=== PATIENT | female | born 1995 | race Hispanic/Latino ===

== ENCOUNTER 2018-04-02 16:18 | Inpatient (IN) | payer SELFPAY ==
[2018-04-02 16:55] VITALS: BMI 38.7
[2018-04-02 17:10] LABS: Amnisure Test RUPTURE DETECTED (No Rupture)
[2018-04-02 17:11] LABS: Amnisure Internal Control QC ACCEPTABLE (ACCEPTABLE)
--- NOTE | 2018-04-02 17:15 | PDOC.LDHP ---
Labor and Delivery H&P Chief complaint: loss of fluid (at 1430 today, at 38 weeks) HPI: Patient of Dr luna Here for LOF at 1430 HPI: 23 yo G1 at 38 weeks with LOF, no VB, good FM. Denies issues. Patient has full Handwritten H&P in chart Review of Systems: Complete ROS performed and as per HPI Current gestational age (weeks): 38 Dating criteria: last menstrual period Grav: 1 Para: 0 Current complications: none Abnormal US findings: No Current medications: pre- vitamins Previous surgical history: none Allergies/Adverse Reactions: Allergies Allergy/AdvReac Type Severity Reaction Status Date / Time No Known Allergies Allergy Verified 04/02/18 16:56 Social history: none - Physical Exam Vital signs reviewed and normal: yes (133/79 afebrile P100) General: NAD Heart: RRR Lungs: CTAB Abdomen: gravid (6#on leopolds) FHT: category 1 [place] contractions every: irregular - Vaginal Exam cm dilated: 3 (Sterile spec performed by me: clear fluid per os and in posterior vag fornix) Effacement: 50% Station: -1 - Assessment L&D Assessment: term rupture in membranes (Prelabor Rupture of membranes; GBS negative. SSE with evidence of ROM) - Plan Plan: admit to L&D, labor augmentation if indicated, informed consent obtained, anesthesia consult for pain management, other (If no cervical change nor contractioin increase, we will begin pitocin augmentation in 2 hours)
[2018-04-02] MEDS ORDERED: Acetaminophen/Codeine 30-300mg Tablet PO PRN ×2 (17:18)
[2018-04-02] MEDS ORDERED: NS / Oxytocin 40 units/1000ml 1,000 ML IV PRN (17:18)
[2018-04-02] MEDS ORDERED: Lidocaine 1% (PF) 30 ML VIAL SC PRN (17:18)
[2018-04-02] MEDS ORDERED: Promethazine HCl 25 MG/ML VIAL IM PRN (17:18)
[2018-04-02] MEDS ORDERED: Ibuprofen 800 MG TAB PO PRN (17:18)
[2018-04-02] MEDS ORDERED: Ondansetron PF 4 MG/2 ML Vial IVP PRN (17:18)
[2018-04-02] MEDS: Lactated Ringer's 1,000 ML IV SCH ×2 (17:40→18:16)
[2018-04-02 17:53] LABS: Hemoglobin 11.6 g/dL (12.0-16.0); Mean Corpuscular HGB CONC 34.4 g/dL (32.0-36.0); Mean Corpuscular Hemoglobin 29.8 pg (27.0-31.0); Mean Corpuscular Volume 86.6 fL (78.0-98.0); Mean Platelet Volume 9.9 fL (7.4-10.4); Platelet Count 215 thou/uL (130-400); RBC Distribution Width 13.3 % (11.5-14.5); Red Blood Cell (RBC) Count 3.88 mill/uL (4.20-5.40); White Blood Cell (WBC) Count 8.1 thou/uL (4.8-10.8)
[2018-04-02 18:30] LABS: HBSAg Index 0.24 S/CO (0-0.99); HIV (1/2) Antibody/Antigen Non-Reactive (NonReactive); HIV 1/2 INDEX 0.26 S/CO (<1.00); Hep B Surf Ag Non-Reactive S/CO (NonReactive); Syphilis Antibody Nonreactive (Nonreactive); Syphilis Antibody Index 0.03 S/CO (<1.00 Non-Reactive)
--- NOTE | 2018-04-02 19:41 | PDOC.LDPN ---
Labor & Delivery Progress Note - Objective Vital signs reviewed and normal: yes General: NAD, resting Uterine fundus: non tender SVE: by me; and IUPC placed after info given by me to patient and family Dilation: 3 Effacement: 50% Station: -1 FHT: category 1 [place] contractions every: irregular pattern AROM: clear fluid IUPC placed: yes - Assessment (1) PROM (premature rupture of membranes) Code(s): O42.90 - NENA ROM, 7TH0 BETW RUPT & ONST LABR, UNSP WEEKS OF GEST Current Visit: Yes Status: Acute Plan: continue plan of care, labor augmentation, pitocin for augmentation ( pitocin reviewed for active labor management. Plan and pitcoin discussed with them. GBS negative. Also offered JACOB- will consider.)
[2018-04-02] MEDS: NS w/ Oxytocin 10 units 500 ML IV SCH (19:50)
[2018-04-02] MEDS: Butorphanol Tartrate 1 MG/ML VIAL SLOW IVP PRN (23:25)
[2018-04-03] MEDS: Lactated Ringer's 1,000 ML IV SCH ×3 (01:55→15:59)
[2018-04-03] MEDS: Butorphanol Tartrate 1 MG/ML VIAL SLOW IVP PRN (01:55)
[2018-04-03] MEDS ORDERED: Fentanyl 4 mcg/Bup 0.1% Cadd 100 ML ONE ×2 (04:03→12:59)
[2018-04-03] MEDS: Fentanyl 4 mcg/Bupivacaine 0.1% Cassette 100 ML EPIDURAL SCH ×2 (04:25→13:03)
[2018-04-03] MEDS ORDERED: Hydrocerin (Eucerin) Cream 120 gm Jar TOP PRN (04:33)
[2018-04-03] MEDS ORDERED: Naloxone HCl 0.4 mg/ml Vial IVP PRN ×4 (04:33→20:23)
[2018-04-03] MEDS ORDERED: Lactated Ringer's 500 ML IV PRN (04:33)
[2018-04-03] MEDS ORDERED: ePHEDrine/0.9% NaCl/PF SYRINGE 50 mg/10 ml SLOW IVP PRN (04:33)
[2018-04-03] MEDS ORDERED: Communication Order-Pharmacy FS SCH ×2 (04:45→20:30)
[2018-04-03] MEDS ORDERED: Acetaminophen 325 MG TAB PO SCH (10:15)
[2018-04-03] MEDS ORDERED: Bupivacaine HCl 0.25%/Epi 0.0005/PF 10 ML VIAL FS ONE (11:11)
[2018-04-03] MEDS: NS w/ Oxytocin 10 units 500 ML IV SCH (11:17)
[2018-04-03] MEDS ORDERED: CEFAZOLIN 2 GM/50 ML BAG IVPB SCH (17:30)
[2018-04-03] MEDS ORDERED: Bicitra 30 ML UDCUP PO SCH (17:30)
[2018-04-03] MEDS ORDERED: Morphine PF 1 MG/ML SYR ONE (19:16)
[2018-04-03] MEDS ORDERED: Azithromycin 500 MG in Sodium Chloride 0.9% 250 ML 250 ML IVPB SCH (19:45)
[2018-04-03] MEDS ORDERED: Lidocaine 2% PF 5 ML VIAL ONE (20:00)
[2018-04-03] MEDS ORDERED: Ondansetron PF 4 MG/2 ML Vial ONE (20:00)
[2018-04-03] MEDS ORDERED: Ketorolac Tromethamine 30 MG/ML VIAL ONE (20:00)
[2018-04-03] MEDS ORDERED: Oxytocin 10 UNITS/ML VIAL ONE (20:00)
[2018-04-03] MEDS ORDERED: Promethazine HCl 25 MG/ML VIAL IM PRN ×2 (20:23→22:02)
[2018-04-03] MEDS ORDERED: Ondansetron PF 4 MG/2 ML Vial IVP PRN ×2 (20:23→22:02)
[2018-04-03] MEDS ORDERED: Naloxone HCl 0.4 mg/ml Vial IV PRN (20:23)
[2018-04-03] MEDS ORDERED: HYDROmorphone 2 MG/ML VIAL SLOW IVP PRN (20:23)
[2018-04-03] MEDS ORDERED: Eucerin (Mineral Oil/Petrolatum,White) 30 gm Jar TOP PRN (20:23)
[2018-04-03] MEDS ORDERED: diphenhydrAMINE 50 MG/ML VIAL IVP PRN (20:23)
[2018-04-03] MEDS ORDERED: L&D-Morphine 4 MG/ML VIAL SLOW IVP PRN (20:23)
[2018-04-03] MEDS ORDERED: Promethazine HCl 25 MG SUPP PR PRN (20:23)
[2018-04-03] MEDS ORDERED: Meperidine HCl/PF 25 MG/ML VIAL SLOW IVP PRN (20:23)
[2018-04-03] MEDS ORDERED: Ondansetron HCl/PF 4 MG/2 ML Vial IVP PRN (20:23)
[2018-04-03] MEDS ORDERED: NS / Oxytocin 40 units/1000ml 1,000 ML IV SCH (22:02)
[2018-04-03] MEDS ORDERED: Zolpidem Tartrate 5 MG TAB PO PRN (22:02)
[2018-04-03] MEDS ORDERED: Lanolin Ointment 7 GM TUBE TOP PRN (22:02)
[2018-04-03] MEDS ORDERED: Meperidine HCl/PF 25 MG/ML VIAL IM PRN (22:02)
[2018-04-03] MEDS ORDERED: Acetaminophen 325 MG TAB PO PRN (22:02)
[2018-04-03] MEDS ORDERED: diphenhydrAMINE 25 MG CAP PO PRN (22:02)
[2018-04-03] MEDS ORDERED: Clindamycin/D5W 900 MG in Premix Bag 1 BAG IVPB SCH (22:15)
--- NOTE | 2018-04-04 02:47 | OP ---
DATE OF PROCEDURE: 04/03/2018 PREOPERATIVE DIAGNOSES: Failure to progress, at term, chorioamnionitis, and greater than 24 hours of rupture of membranes. POSTOPERATIVE DIAGNOSES: Failure to progress, at term, chorioamnionitis, and greater than 24 hours of rupture of membranes. PROCEDURE PERFORMED: Primary low transverse section without extension. BLAST HOLE DRILLER: Magno Rousseau MD for [facility] obstetric hospitalist. ANESTHESIA: Epidural. DRAINS: Apblo to gravity. MEDICATIONS: 2 g Ancef and 500 of Zithromax. PREINCISION: DVT prophylaxis with SCDs. COUNTS: Correct at the end of the procedure. OPERATIVE FINDINGS: 1. Vigorous female , cephalic presentation, persistent ROT presentation to nursery, 7 pounds and 6 ounces, 9 and 9 of Apgars. 2. Foul-smelling amniotic fluid. 3. Normal-appearing uterus, tubes, and ovaries bilaterally. 4. Hemostasis, clear urine, counts correct at the end of the procedure. DISPOSITION: To recovery room in good condition. DESCRIPTION OF PROCEDURE: After obtaining appropriate operative consent, the patient was taken to OR back, where epidural was dosed to appropriate level. A Pfannenstiel skin incision was made and carried down to the fascia in the midline, incised sharply, and extended superiorly and laterally with curved Dotson scissors. Rectus dissected off sharply superiorly and inferiorly. Peritoneum was entered bluntly after dividing the rectus in the midline, and the Colin O retractor was placed inside. Vesicouterine peritoneal fold was identified, and low-transverse hysterotomy was made just above this. It was extended superiorly and laterally with finger fractionization. At hysterotomy, foul-smelling amniotic fluid was encountered. The infant's head was elevated through hysterotomy. The rest of the infant was delivered. Cord was clamped, cut, and handed off to the team in attendance. Usual cord blood sample was obtained. Placenta was removed manually, sent for pathologic analysis. Uterus was curetted out. Hysterotomy was noted to be without extension, closed using running locking #1 Monocryl suture. Gutters were irrigated out bilaterally, and reinspection of the hysterotomy revealed it to be dry. The Colin O retractor was removed, and the rectus was inspected and noted to be dry. Fascia was reapproximated using running continuous 0 PDS suture x2. Subcutaneous tissue was irrigated, rendered hemostatic with Bovie cautery, reapproximated using a 2-0 plain gut, and skin reapproximated with keegan. The patient was taken to recovery room in good condition. Job ID: [id number]
[2018-04-04] MEDS ORDERED: Ketorolac Tromethamine 30 MG/ML VIAL IVP PRN (04:30)
[2018-04-04] MEDS ORDERED: Ketorolac Tromethamine 30 MG/ML VIAL IVP SCH (04:30)
[2018-04-04] MEDS: Clindamycin/D5W 900 MG in Premix Bag 1 BAG IVPB SCH ×3 (05:18→21:27)
[2018-04-04 06:29] LABS: Hemoglobin 9.4 g/dL (12.0-16.0); Mean Corpuscular HGB CONC 34.1 g/dL (32.0-36.0); Mean Corpuscular Hemoglobin 29.8 pg (27.0-31.0); Mean Corpuscular Volume 87.5 fL (78.0-98.0); Mean Platelet Volume 9.3 fL (7.4-10.4); Platelet Count 185 thou/uL (130-400); RBC Distribution Width 13.3 % (11.5-14.5); Red Blood Cell (RBC) Count 3.15 mill/uL (4.20-5.40); White Blood Cell (WBC) Count 10.1 thou/uL (4.8-10.8)
[2018-04-04] MEDS: cefTRIAXone\\ROCEPHIN 1 GM in Sodium Chloride 0.9% 100 ML IVPB SCH (06:41)
--- NOTE | 2018-04-04 08:33 | PDOC.PP ---
Post Progress Note Post Day #: 1 PO intake tolerated: yes Flatus: no Ambulation: no Vital Signs (12 hours) Temp Pulse Resp BP Pulse Ox 04/04/18 04:55 98.4 F 114 H 18 122/55 L 95 04/04/18 01:00 98.0 F 103 H 18 108/56 L 96 04/04/18 00:15 98.2 F 99 20 105/59 L 97 04/03/18 23:10 99.0 F 100 20 108/59 L 97 Weight Weight 192 lb - Physical Examination General: NAD ( -pulse at rest 89 currently) Cardiovascular: no m/r/g, RRR Respiratory: clear to auscultation bilaterally, non-labored breathing Abdominal: + bowel sounds, lochia, no distention, appropriately TTP Extremities: negative homans (B) Skin: CS incision dry & intact, no rash Neurological: no gross focal deficits Psychiatric: normal affect Result Diagrams: 04/04/18 05:52 Additional Labs: Post Labs Blood Type O POSITIVE 04/02/18 17:38 Hep Bs Antigen Non-Reactive S/CO (NonReactive) 04/02/18 17:38 - Assessment/Plan doing well. benign exam. plan to continue rocephin and clindamycin for 24 hr and reassess. will check out coverage to ob hospitalist for remainder of admission
[2018-04-04] MEDS ORDERED: Adacel (T-DAP) 0.5 ML SYRINGE IM ONE (09:00)
[2018-04-04] MEDS ORDERED: Measles/Mumps/Rubella 10 MCG/0.5 ML VIAL SC ONE (09:00)
[2018-04-04] MEDS: Docusate Calcium (SURFAK) 240 MG CAP PO SCH ×2 (09:35→21:38)
[2018-04-04] MEDS: Prenatal Vitamin 1 TAB PO SCH (09:36)
[2018-04-04] MEDS: Lactated Ringer's 1,000 ML IV SCH ×2 (10:54→15:15)
[2018-04-04] MEDS: HYDROcodone/Acetaminophen 5/325 mg Tablet PO PRN ×2 (13:54→21:33)
[2018-04-04] MEDS ORDERED: Sodium Chloride 0.9% 10 ML ONE (21:14)
[2018-04-04] MEDS: Simethicone Chewable 80 MG TAB PO PRN (21:34)
[2018-04-04] MEDS: Ibuprofen 800 MG TAB PO SCH (22:20)
[2018-04-05] MEDS: Lactated Ringer's 1,000 ML IV SCH ×4 (01:00→22:47)
[2018-04-05] MEDS: Clindamycin/D5W 900 MG in Premix Bag 1 BAG IVPB SCH (05:09)
[2018-04-05] MEDS: cefTRIAXone\\ROCEPHIN 1 GM in Sodium Chloride 0.9% 100 ML IVPB SCH (06:21)
[2018-04-05] MEDS: Ibuprofen 800 MG TAB PO SCH ×3 (06:23→21:16)
[2018-04-05] MEDS: Simethicone Chewable 80 MG TAB PO PRN (06:23)
--- NOTE | 2018-04-05 07:57 | PRG ---
DATE OF SERVICE: 04/05/2018 POSTOPERATIVE NOTE SUBJECTIVE: The patient is postoperative day 2 status post a primary for failure to progress. The patient reports she is tolerating p.o., voiding on her own, having decreased lochia and good pain control. OBJECTIVE: VITAL SIGNS: The most current temperature 97.6, pulse 91, respiratory rate of 18, blood pressure 116/57. GENERAL: She appears to be in no acute distress. She is alert and oriented, cooperative and pleasant to interact with. HEENT: Head is normocephalic and atraumatic. ABDOMEN: Fundus is firm. Incision is clean, dry, and intact with keegan. ASSESSMENT AND PLAN: The patient is postoperative day 2 status post a primary section for failure to progress, now on antibiotics for 24 hours. The patient has remained afebrile. We will discontinue antibiotics and watch for the next 24 hours, and anticipate discharge tomorrow. Job ID: [id number]
[2018-04-05] MEDS: Prenatal Vitamin 1 TAB PO SCH (09:44)
[2018-04-05] MEDS: Docusate Calcium (SURFAK) 240 MG CAP PO SCH ×2 (09:44→21:18)
[2018-04-05] MEDS: HYDROcodone/Acetaminophen 5/325 mg Tablet PO PRN (12:00)
--- NOTE | 2018-04-05 21:44 | PDOC.PP ---
Post Progress Note Post Day #: 2 Subjective: Doing well, aware that baby will stay for 7 more days or so. She requested curtesy stay after dsch PO intake tolerated: yes Flatus: yes Ambulation: yes Vital Signs (12 hours) Temp Pulse Resp BP Pulse Ox 04/05/18 21:15 98.2 F 90 16 119/56 L 99 04/05/18 17:20 98.1 F 97 20 113/56 L 98 04/05/18 11:55 98.3 F 88 20 121/67 Weight Weight 192 lb - Physical Examination General: NAD Cardiovascular: no m/r/g Respiratory: clear to auscultation bilaterally Abdominal: + bowel sounds, lochia, no distention, appropriately TTP Extremities: negative homans (B) Skin: CS incision dry & intact Neurological: no gross focal deficits Psychiatric: A&Ox3, normal affect Result Diagrams: 04/04/18 05:52 Additional Labs: Post Labs Blood Type O POSITIVE 04/02/18 17:38 Hep Bs Antigen Non-Reactive S/CO (NonReactive) 04/02/18 17:38 Rubella IgG Antibody 1.15 index (Immune >0.99) 04/04/18 16:13 (1) PROM (premature rupture of membranes) Code(s): O42.90 - NENA ROM, 7TH0 BETW RUPT & ONST LABR, UNSP WEEKS OF GEST Status: Acute (2) delivery delivered Code(s): O82 - ENCOUNTER FOR DELIVERY WITHOUT INDICATION Status: Acute - Assessment/Plan POD 2 from primary CS for FTP, HX chorio...now off abx..afebrile. I will plan on DSCH on POD3...keegan would need to be remoced on POD 7-10. No evidence wound infection. Patient may stay as B&B if room available after formal DSCH.
--- NOTE | 2018-04-06 05:12 | PDOC.PP ---
Post Progress Note Post Day #: 3; DISCHARGE NOTE Subjective: No new complaints PO intake tolerated: yes Flatus: yes Ambulation: yes Vital Signs (12 hours) Temp Pulse Resp BP Pulse Ox 04/05/18 21:15 98.2 F 90 16 119/56 L 99 04/05/18 20:03 99 04/05/18 17:20 98.1 F 97 20 113/56 L 98 Weight Weight 192 lb - Physical Examination General: NAD Cardiovascular: no m/r/g Respiratory: clear to auscultation bilaterally Abdominal: + bowel sounds, lochia, no distention, appropriately TTP Extremities: negative homans (B) Neurological: no gross focal deficits Psychiatric: A&Ox3, normal affect Result Diagrams: 04/04/18 05:52 Additional Labs: Post Labs Blood Type O POSITIVE 04/02/18 17:38 Hep Bs Antigen Non-Reactive S/CO (NonReactive) 04/02/18 17:38 Rubella IgG Antibody 1.15 index (Immune >0.99) 04/04/18 16:13 (1) PROM (premature rupture of membranes) Code(s): O42.90 - NENA ROM, 7TH0 BETW RUPT & ONST LABR, UNSP WEEKS OF GEST Status: Acute (2) delivery delivered Code(s): O82 - ENCOUNTER FOR DELIVERY WITHOUT INDICATION Status: Acute - Assessment/Plan POD 3; afebrile. OK for planned discharge today. Final DX: Primary delivery Chorioamnionitis
[2018-04-06] MEDS: Ibuprofen 800 MG TAB PO SCH ×2 (06:33→12:58)
[2018-04-06] MEDS: Lactated Ringer's 1,000 ML IV SCH (08:03)
[2018-04-06] MEDS: Docusate Calcium (SURFAK) 240 MG CAP PO SCH (08:42)
[2018-04-06] MEDS: Prenatal Vitamin 1 TAB PO SCH (08:42)
[2018-04-06] MEDS: HYDROcodone/Acetaminophen 5/325 mg Tablet PO PRN ×2 (08:42→12:58)
[2018-04-06 09:48] VITALS: BP 127/59; TEMP 97.8
[2018-04-09] MEDS ORDERED: Ibuprofen 800 MG TAB PO SCH (06:00)
== END 2018-04-06 14:15 | disposition home or self-care (01) | DRG 788 ==
LOC: L&D/OP 16:18 → L&D 18:23 → 3SW 04-03 23:17
PROVIDERS: ADMIT Obstetrics & Gynecology; ATTEND Obstetrics & Gynecology
PROC: 10D00Z1 Extraction of Products of Conception, Low, Open Approach (ICD-10-PCS; principal; 2018-04-03)
DX: O42.12 Full-term premature rupture of membranes, onset of labor more than 24 hours following rupture (principal); O41.1290 Chorioamnionitis, unspecified trimester, not applicable or unspecified; Z3A.38 38 weeks gestation of pregnancy; Z37.0 Single live birth; O62.1 Secondary uterine inertia
CPT/HCPCS: 36415; 51702; 76815; 84112; 85027; 86762; 86780; 86850; 86900; 86901; 87340; 87389; 88307; 99285; J0131; J0456; J0595; J0696; J1885; J2001; J2274; J2405; J2590; J3490; J7050

== ENCOUNTER 2018-04-08 19:55 | Inpatient (IN) | payer SELFPAY ==
[2018-04-08] MEDS ORDERED: Zolpidem Tartrate 5 MG TAB PO PRN (20:15)
[2018-04-08] MEDS ORDERED: Ondansetron PF 4 MG/2 ML Vial IVP PRN (20:15)
[2018-04-08] MEDS ORDERED: Acetaminophen/Codeine 30-300mg Tablet PO PRN ×2 (20:15)
[2018-04-08] MEDS ORDERED: Adacel (T-DAP) 0.5 ML SYRINGE IM ONE (20:15)
[2018-04-08] MEDS ORDERED: Lanolin Ointment 7 GM TUBE TOP PRN (20:15)
[2018-04-08 20:39] VITALS: BMI 38.3
[2018-04-08] MEDS ORDERED: Acetaminophen 1,000 MG in Premix Bag 1 BAG IVPB SCH (21:00)
[2018-04-08 21:11] LABS: #Basophils 0.1 thou/uL (0.0-0.2); #Eosinphils 0.1 thou/uL (0.0-0.7); #Lymphocytes 0.9 thou/uL (1.20-3.40); #Monocytes 0.7 thou/uL (0.11-0.59); #Neutrophils 6.7 thou/uL (1.40-6.50); %Basophils 1.2 % (0.0-1.0); %Eosinophils 0.7 % (0.0-10.0); %Lymphocytes 10.2 % (21.0-51.0); %Monocytes 8.2 % (0.0-10.0); %Neutrophils 79.7 % (42.0-75.0); Hemoglobin 10.2 g/dL (12.0-16.0); Mean Corpuscular HGB CONC 33.2 g/dL (32.0-36.0); Mean Corpuscular Hemoglobin 29.2 pg (27.0-31.0); Mean Corpuscular Volume 87.8 fL (78.0-98.0); Mean Platelet Volume 6.8 fL (7.4-10.4); Platelet Count 352 thou/uL (130-400); RBC Distribution Width 13.3 % (11.5-14.5); Red Blood Cell (RBC) Count 3.51 mill/uL (4.20-5.40); White Blood Cell (WBC) Count 8.4 thou/uL (4.8-10.8)
[2018-04-08] MEDS ORDERED: Gentamicin Sulfate 300 MG in Sodium Chloride 0.9% 100 ML IVPB SCH (21:30)
[2018-04-08 21:31] LABS: ALT (SGPT) 21 U/L (8-55); AST (SGOT) 17 U/L (5-34); Albumin 3.1 g/dL (3.5-5.0); Alkaline Phosphatase 126 U/L (40-150); Anion Gap 14 mmol/L (10-20); BUN (Urea Nitrogen) 5 mg/dL (7.0-18.7); Bilirubin, Total 0.3 mg/dL (0.2-1.2); Calc. Creatinine Clearance 197 mL/min (70-130); Calcium 8.8 mg/dL (7.8-10.44); Carbon Dioxide 21 mmol/L (22-29); Chloride 103 mmol/L (98-107); Estimated GFR-MDRD Greater than 90; Globulin 3.9 g/dL (2.4-3.5); Glucose 103 mg/dL (70-105); Potassium 3.7 mmol/L (3.5-5.1); Sodium 134 mmol/L (136-145)
--- NOTE | 2018-04-08 23:12 | CT ---
CT ABDOMEN AND PELVIS WITH CONTRAST: HISTORY: A 23-year-old female with a history of post fever and pain. FINDINGS: Small pleural effusions are noted with some minimal subsegmental atelectatic changes in the lung base s. The visualized liver, gallbladder, pancreas, spleen, and adrenal glands are unremarkable. No jolie al calculus or acute obstruction. Enlarged post post uterus with some scattered gas within the post surgical anterior abdominal wall. There is a small amount of loculated fluid and gas positioned between the uterus and the bladder, presumed to be of recent post surgical origin. T here is some trace free fluid noted at the edge of the liver. No bowel obstruction. No CT evidence for acute appendicitis, although a normal appendix is not anatomically identified. IMPRESSION: 1. Enlarged postoperative section uterus, with some scattered air and gas within the postop erative anterior abdominal wall, as well as some minimal air and fluid loculation between the uterus and bladder, presumed to recent post section change. 2. Minimal free fluid adjacent to the liver. 3. No evidence for a drainable abscess. 4. Small pleural effusions and pleural-based parenchymal subsegmental atelectatic change. POS: [facility]
[2018-04-08] MEDS: Ibuprofen 800 MG TAB PO SCH (23:20)
[2018-04-08] MEDS: Ampicillin 2 GM in Sodium Chloride 0.9% 100 ML IVPB SCH (23:22)
[2018-04-08] MEDS: Sodium Chloride 0.9% 1,000 ML IV SCH (23:22)
[2018-04-08] MEDS: Clindamycin/D5W 900 MG in Premix Bag 1 BAG IVPB SCH (23:22)
[2018-04-09] MEDS: Sodium Chloride 0.9% 1,000 ML IV SCH (05:16)
[2018-04-09] MEDS: Clindamycin/D5W 900 MG in Premix Bag 1 BAG IVPB SCH ×3 (05:17→21:32)
[2018-04-09] MEDS: Ampicillin 2 GM in Sodium Chloride 0.9% 100 ML IVPB SCH ×3 (05:17→18:09)
[2018-04-09] MEDS: Ibuprofen 800 MG TAB PO SCH ×3 (05:23→21:33)
--- NOTE | 2018-04-09 06:55 | PRG ---
DATE OF SERVICE: 04/09/2018 SUBJECTIVE: The patient is hospital day 2 status post 3 admission for endomyometritis. The patient has been on ampicillin, gentamicin, and clindamycin overnight. She reports this morning after antibiotics and pain medication that she is feeling better. OBJECTIVE: VITAL SIGNS: This morning, temperature 99, pulse of 97, respiratory rate of 18, blood pressure 105/51. GENERAL: She appears to be in no acute distress. She appears to have much better color than time of admission. ABDOMEN: Appropriately tender. Incision is clean, dry, and intact with keegan. EXTREMITIES: Nontender without excessive edema. ASSESSMENT AND PLAN: The patient is hospital day 2 for endomyometritis. No concerning features found on CT of abdomen and pelvis. Blood cultures and urine culture are pending. The patient does not have a significant white count at this time. We will continue antibiotics for the next at least 48 hours and we will plan on removing keegan this morning and replace them with Steri-Strips. Job ID: [id number]
--- NOTE | 2018-04-09 07:21 | HP ---
CHIEF COMPLAINT: Postoperative fever. HISTORY OF PRESENT ILLNESS: The patient is a 23-year-old G1, P1 female, who is postop day #6 status post a primary for failure to progress at term and chorioamnionitis. The patient has been staying in bed and breakfast here at the hospital with her baby in the NICU on IV antibiotics for chorioamnionitis and developed a temperature of 102.6. The patient reports she has been having rigors, has been having vaginal bleeding, though does not report excessive and has been having some abdominal pain, but controlled on oral analgesics. The patient denies any redness or excessive soreness in her breast, though she does report her milk just come in the day prior. During her previous admission for delivery, the patient had a diagnosis of chorioamnionitis, and had been placed on antibiotics for 48 hours of Rocephin and clindamycin. PAST MEDICAL HISTORY: Negative. PAST SURGICAL HISTORY: Prior 4 days ago. ALLERGIES: NO KNOWN DRUG ALLERGIES. MEDICATIONS: [place] and ibuprofen. REVIEW OF SYSTEMS: Per HPI. PHYSICAL EXAMINATION: VITAL SIGNS: Initial temperature 102.6, pulse of 112, blood pressure 138/64, respiratory rate of 18, saturating 100% on room air. GENERAL: She appears to be diaphoretic, flushed. She is alert, oriented, cooperative, pleasant to interact with. HEAD: Normocephalic and atraumatic. LUNGS: Clear to auscultation bilaterally. HEART: Tachycardic, but regular. ABDOMEN: Soft, appropriately tender. Incision is clean, dry, and intact with keegan and soft to palpation. Does not appear to have any fluctuance. EXTREMITIES: Nontender with bisymmetrical edema. PELVIC: Uterus is very tender with gentle palpation. BREASTS: The patient has multiple areas that are firm, but no areas of redness. No fluctuance. No excessive induration. LABORATORY WORK: On admission, white count is 8.4, hemoglobin is 10.2, hematocrit is 30.8, platelets are 352,000. IMAGING STUDIES: A CT of abdomen and pelvis was performed. Findings included postsurgical changes, some scattered air and gases in the postoperative anterior abdominal wall and minimal air fluid loculation. No drainable abscess. ASSESSMENT AND PLAN: The patient is a 23-year-old postop day 6, status post primary complicated by intra-amniotic infection, who receives antibiotics, Rocephin and clindamycin at time of delivery for nearly 48 hours. The patient has now developed high fever with abdominal pain. The patient is at risk for endomyometritis given and a prior diagnosis of intra-amniotic infection. The patient has no other clear source of infection. No evidence of mastitis. She has no intra-abdominal abscess requiring drainage. Her incision appears to be appropriately healing. We will place the patient on ampicillin, gentamicin, and clindamycin for the next at least 48 hours and reassess. Job ID: [id number]
[2018-04-09] MEDS: Gentamicin Sulfate 300 MG in Sodium Chloride 0.9% 100 ML IVPB SCH ×2 (09:05→21:32)
[2018-04-09] MEDS: Prenatal Vitamin 1 TAB PO SCH (09:05)
--- NOTE | 2018-04-09 16:51 | PDOC.EVN ---
Event Note - Event Note Event Note: 1/2 blood cultures positive for gram + cocci in pairs/chains. Should be covered by current antibiotic regimen. Continue current management.
[2018-04-10] MEDS: Ampicillin 2 GM in Sodium Chloride 0.9% 100 ML IVPB SCH ×4 (00:26→19:00)
[2018-04-10] MEDS: Clindamycin/D5W 900 MG in Premix Bag 1 BAG IVPB SCH ×3 (05:10→22:52)
[2018-04-10] MEDS: Ibuprofen 800 MG TAB PO SCH ×3 (05:11→22:51)
--- NOTE | 2018-04-10 05:43 | PDOC.PP ---
Post Progress Note Post Day #: 7 Subjective: Feeling better this morning. No complaints. PO intake tolerated: yes Ambulation: yes Vital Signs (12 hours) Temp Pulse Resp BP Pulse Ox 04/09/18 20:00 100 04/09/18 19:30 99.0 F 76 18 113/56 L 100 Weight Weight 190 lb - Physical Examination General: NAD Respiratory: non-labored breathing Abdominal: no distention Deviation from normal: Mild fundal tenderness Fundus firm & at: U-4 Skin: CS incision dry & intact, no rash Neurological: no gross focal deficits Psychiatric: A&Ox3, normal affect Result Diagrams: 04/08/18 21:02 04/08/18 21:02 (1) endometritis Code(s): O86.12 - ENDOMETRITIS FOLLOWING DELIVERY Status: Acute (2) delivery delivered Code(s): O82 - ENCOUNTER FOR DELIVERY WITHOUT INDICATION Status: Acute - Assessment/Plan Feeling better but still with mild fundal tenderness. 1/2 blood cultures positive but final id pending. Continue amp/gent/clinda.
[2018-04-10] MEDS: Prenatal Vitamin 1 TAB PO SCH (09:27)
[2018-04-10] MEDS: Gentamicin Sulfate 300 MG in Sodium Chloride 0.9% 100 ML IVPB SCH ×2 (09:27→21:32)
[2018-04-10] MEDS: Sodium Chloride 0.9% 1,000 ML IV SCH ×3 (11:04→14:32)
--- NOTE | 2018-04-10 19:52 | PDOC.EVN ---
Event Note - Event Note Event Note: Pt is post op day 7 s/p readmission for fever and endomyometritis. PT was give 48hrs of abx for chorioamnionitis immediately post op. and was discharged home feeling better and afebrile x48hrs. On the readmission pt had fever of 102.6 and was placed on amp/gent/clindamycin. Blood cultures x1 positive for peptostreptococcus. ID consulted to give recommendations of appropriate abx use in this setting.
[2018-04-11] MEDS: Ampicillin 2 GM in Sodium Chloride 0.9% 100 ML IVPB SCH ×2 (00:22→06:18)
[2018-04-11] MEDS: Clindamycin/D5W 900 MG in Premix Bag 1 BAG IVPB SCH (05:08)
[2018-04-11] MEDS: Ibuprofen 800 MG TAB PO SCH (06:20)
[2018-04-11 08:31] VITALS: BP 111/56
[2018-04-11] MEDS ORDERED: Amoxicillin/Potassium Clav 875 MG TAB PO SCH (09:00)
[2018-04-11] MEDS: Prenatal Vitamin 1 TAB PO SCH (09:20)
[2018-04-11] MEDS: Gentamicin Sulfate 300 MG in Sodium Chloride 0.9% 100 ML IVPB SCH (09:20)
[2018-04-11 12:14] VITALS: TEMP 98.6
--- NOTE | 2018-04-11 12:23 | DIS ---
DATE OF ADMISSION: 04/08/2018 DATE OF DISCHARGE: 04/11/2018 ADMITTING DIAGNOSIS: Endomyometritis, . DISCHARGE DIAGNOSIS: Endomyometritis, . PROCEDURE: IV antibiotic administration, CT scan. CONSULTATIONS: None. HOSPITAL COURSE: The patient is a 23-year-old female, postop day 7 today, who was readmitted to the hospital for endomyometritis and placed on ampicillin, gentamicin, and clindamycin. The patient was previously treated on her initial admission with Rocephin and Flagyl for any intra-amniotic infection. On the day of admission, the patient had a fever of 102.7. Since then, the patient has not had a return of fever and today on hospital day 3, reports that she is feeling better, decreased pain, lochia. She is tolerating p.o., voiding on her own. I did discuss the case with Infectious Disease, who recommend that she go home with Augmentin for an additional 10 days. Given positive blood cultures for Peptostreptococcus anaerobius. The patient will be discharged to home today with Augmentin 875 mg to be taken twice a day for the next 10 days. Prescription has been sent to the [facility]. PHYSICAL EXAMINATION: VITAL SIGNS: Most recent, temperature 97.8, pulse is 72, respiratory rate of 20, and blood pressure of 118/58. GENERAL: She appears to be in no acute distress. She is alert and oriented, cooperative and pleasant to interact with. HEENT: Head is normocephalic, atraumatic. LUNGS: Clear to auscultation bilaterally. ABDOMEN: Soft. Fundus is firm and nontender. EXTREMITIES: Nontender, nonedematous. Her incision is clean, dry, and intact with Steri-Strips. The patient has instructions to follow up with her primary OB, Dr. Watson in 1 week. She has instructions to seek medical attention should she experience fever, increasing pain, bleeding, redness, or drainage from her incision. Job ID: [id number]
== END 2018-04-11 12:35 | disposition home or self-care (01) | DRG 776 ==
LOC: 3SW 19:55
PROVIDERS: ADMIT Obstetrics & Gynecology; ATTEND Obstetrics & Gynecology
DX: O86.12 Endometritis following delivery (principal); B96.89 Other specified bacterial agents as the cause of diseases classified elsewhere; Z98.890 Other specified postprocedural states
CPT/HCPCS: 36415; 74177; 80053; 80170; 85025; 87040; 87076; 87086; 87149; A4353; J0131; J0290; J1580; J3490; J7050